=== PATIENT | female | born 1930 | race Caucasian/White ===

== ENCOUNTER 2017-03-09 15:34 | Emergency (ER) | payer MEDICARE, OTHER ==
--- NOTE | 2017-03-09 16:26 | ERPHSYRPT ---
- History of Present Illness Time Seen by Provider: 03/09/17 16:18 Source: patient Exam Limitations: no limitations Patient Subjective Stated Complaint: PT REPORTS WAKING UP THIS AM WITH SWELLING TO BILATERAL FOOT ET ANKLES-DENIES PAIN DENIES SOB Triage Nursing Assessment: PT PINK WARM ET [id number] CLEAR ET EQUAL BILATERALLY-BILATERAL EDEMA NOTED-PULSES PRESENT Physician History: The patient is an 86-year-old female who complains of noticing extra swelling in her lower legs and feet today. She normally takes 40 mg of Lasix a day in the morning but today because of the swelling took 2. She has a history of congestive heart failure and was hospitalized a year ago for CHF. Her doctor told her if this happened again, to be seen by . She denies shortness of breath. She denies chest pain. Her past medical history is significant for CHF , hypertension, and high cholesterol. Timing/Duration: today Severity: moderate Modifying Factors: Improves With: medication Associated Symptoms: denies symptoms Allergies/Adverse Reactions: No Known Allergies Allergy (Verified 03/09/17 15:47) Home Medications: Carvedilol 3.125 mg [Coreg 3.125 MG] 3.125 mg PO BID 10/04/15 [History] Gabapentin 100 mg PO TIDPRN 10/04/15 [History] Hydrocodone Bit/Acetaminophen [[place] 7.5-325 Tablet] 1 each PO Q6HPRN PRN [History] Simvastatin [Zocor] 20 mg PO HS 10/04/15 [History] Aspirin 81 gm Chew [Baby Aspirin 81 mg Chew] 81 mg PO DAILY 03/09/17 [ History] Hx Tetanus, Diphtheria Vaccination/Date Given: No Hx Influenza Vaccination/Date Given: Yes Hx Pneumococcal Vaccination/Date Given: Yes Immunizations Up to Date: Yes - Review of Systems Constitutional: No Fever, No Chills Eyes: No Symptoms Ears, Nose, & Throat: No Symptoms Respiratory: No Cough, No Dyspnea Cardiac: Edema, No Chest Pain, No Syncope Abdominal/Gastrointestinal: No Abdominal Pain, No Nausea, No Vomiting, No Diarrhea Genitourinary Symptoms: No Dysuria Musculoskeletal: No Back Pain, No Neck Pain Skin: No Rash Neurological: No Dizziness, No Focal Weakness, No Sensory Changes Psychological: No Symptoms Endocrine: No Symptoms Hematologic/Lymphatic: No Symptoms Immunological/Allergic: No Symptoms All Other Systems: Reviewed and Negative - Past Medical History Pertinent Past Medical History: Yes Neurological History: Stroke ENT History: Cataracts Cardiac History: Congestive Heart Failure, High Cholesterol, Hypertension Respiratory History: Sleep Apnea Endocrine Medical History: No Pertinent History Musculoskeletal History: Osteoarthritis GI Medical History: No Pertinent History History: No Pertinent History Psycho-Social History: No Pertinent History Female Reproductive Disorders: No Pertinent History Other Medical History: LEFT TKR 2003. RIGHT TKR FEBRUARY 2015 - Past Surgical History Past Surgical History: Yes Neuro Surgical History: No Pertinent History Cardiac: No Pertinent History Respiratory: No Pertinent History Gastrointestinal: Cholecystectomy Genitourinary: No Pertinent History Musculoskeletal: Joint Replacement Female Surgical History: Tubal Ligation Other Surgical History: filter placed - Social History Smoking Status: Never smoker Exposure to second hand smoke: No Drug Use: none Patient Lives Alone: No - Nursing Vital Signs Nursing Vital Signs: Initial Vital Signs Temperature 97.2 F Temperature Source Oral Pulse Rate 80 Respiratory Rate 18 Blood Pressure [] 156/85 Pain Intensity 0 - Physical Exam General Appearance: no apparent distress, alert Eye Exam: PERRL/EOMI, eyes nml inspection Ears, Nose, Throat Exam: normal ENT inspection, TMs normal, pharynx normal, moist mucous membranes Neck Exam: normal inspection, non-tender, supple, full range of motion Respiratory Exam: normal breath sounds, lungs clear, No respiratory distress Cardiovascular Exam: regular rate/rhythm, normal heart sounds, normal peripheral pulses Gastrointestinal/Abdomen Exam: soft, normal bowel sounds, No tenderness, No mass Pelvic Exam: not done Rectal Exam: not done Back Exam: normal inspection, normal range of motion, No CVA tenderness, No vertebral tenderness Extremity Exam: pedal edema (2+) Neurologic Exam: alert, oriented x 3, cooperative, normal mood/affect, nml cerebellar function, nml station & gait, sensation nml, No motor deficits Skin Exam: normal color, warm, dry, No rash Lymphatic Exam: No adenopathy SpO2 Interpretation: normal SpO2: 97 Oxygen Delivery: Room Air - Radiology Exams Chest X-ray Interpretation: Interpreted by me, Negative Ordered Tests: Active Orders 24 hr Category Date Time Status CHEST 2 VIEWS (PA AND LAT) Stat Exams 03/09/17 16:30 Taken CBC W DIFF Stat Lab 03/09/17 17:00 Completed CMP Stat Lab 03/09/17 17:00 Completed NT PRO BNP Stat Lab 03/09/17 17:00 Completed Lab/Rad Data: Laboratory Result Diagrams 03/09/17 17:00 03/09/17 17:00 Laboratory Results 03/09/17 03/09/17 Range/Units 17:00 17:00 WBC 5.8 (4.0-10.5) K/mm3 RBC 4.31 (4.1-5.4) M/mm3 Hgb 13.5 (12.0-16.0) gm/dl Hct 42.6 (35-47) % MCV 98.8 (78-100) fl MCH 31.3 (26-32) pg MCHC 31.7 L (32-36) g/dl RDW 12.1 (11.5-14.0) % Plt Count 195 (150-450) K/mm3 MPV 9.0 (6-9.5) fl Gran % 48.3 (36.0-66.0) % Lymphocytes % 34.0 (24.0-44.0) % Monocytes % 11.9 (0.0-12.0) % Eosinophils % 5.5 H (0.00-5.0) % Basophils % 0.3 (0.0-0.4) % Basophils # 0.02 (0-0.4) Sodium 143 (136-145) mEq/L Potassium 3.7 (3.5-5.1) mEq/L Chloride 101 (98-107) mEq/L Carbon Dioxide 34.2 H (21-32) mEq/L Anion Gap 11.0 (5-15) MEQ/L BUN 18 (9-20) mg/dL Creatinine 0.84 (0.55-1.30) mg/dl Estimated GFR > 60 ML/MIN Glucose 107 (70-110) MG/DL Calcium 10.1 (8.5-10.1) mg/dL Total Bilirubin 0.60 (0.2-1.0) mg/dL AST 26 (15-37) U/L ALT 26 (12-78) U/L Alkaline Phosphatase 69 (46-116) U/L NT-Pro-B Natriuret Pep 1916 H (0-450) pg/ml Serum Total Protein 7.5 (6.4-8.2) gm/dL Albumin 3.9 (3.4-5.0) g/dL - Departure Time of Disposition: 17:43 Departure Disposition: Home Clinical Impression: Lower leg edema Condition: Stable Critical Care Time: No Additional Instructions: This swelling of your lower legs and feet is caused by your congestive heart failure. Increase your Lasix from 40 mg daily to 40 mg twice a day for 3 days. Follow-up next week.
[2017-03-09 16:58] VITALS: O2SAT 97
[2017-03-09 17:08] LABS: BASOPHIL % 0.3 % (0.0-0.4); Eosinophil % 5.5 % (0.00-5.0); Granulocytes % 48.3 % (36.0-66.0); Mean Cell Volume 98.8 fl (78-100); Mean Corpuscular Hemoglobin 31.3 pg (26-32); Monocytes % 11.9 % (0.0-12.0); Platelet Count 195 K/mm3 (150-450); Red Blood Count 4.31 M/mm3 (4.1-5.4); Red Cell Distribution Width 12.1 % (11.5-14.0); White Blood Count 5.8 K/mm3 (4.0-10.5)
[2017-03-09 17:37] LABS: ALBUMIN 3.9 g/dL (3.4-5.0); ALKALINE PHOSPHATASE 69 U/L (46-116); BLOOD UREA NITROGEN 18 mg/dL (9-20); CHLORIDE 101 mEq/L (98-107); Carbon Dioxide 34.2 mEq/L (21-32); Glucose 107 MG/DL (70-110); Potassium 3.7 mEq/L (3.5-5.1); SGOT/AST 26 U/L (15-37); SGPT/ALT 26 U/L (12-78); SODIUM 143 mEq/L (136-145); Total Protein 7.5 gm/dL (6.4-8.2)
[2017-03-09 17:57] VITALS: BP 139/67; PULSE 75
--- NOTE | 2017-03-09 21:30 | XRAY ---
Indication: Lower leg edema. History of CHF. Comparison: October 06, 2015. PA/lateral chest is clear. Heart is not enlarged. Vascularity normal. Descending aorta remains tortuous. Bony thorax intact again with mild osteopenia and degenerative changes. Impression: Nonacute chest with chronic features.
== END 2017-03-09 17:56 | disposition home or self-care (01) ==
LOC: ED 15:34
DX: R60.0 Localized edema (principal); I50.9 Heart failure, unspecified; Z79.899 Other long term (current) drug therapy; M79.89 Other specified soft tissue disorders; I10 Essential (primary) hypertension; E78.00 Pure hypercholesterolemia, unspecified
CPT/HCPCS: 36415; 71020; 80053; 83880; 85025; 99284

== ENCOUNTER 2019-02-23 10:18 | Emergency (ER) | payer MEDICARE, OTHER ==
[2019-02-23 10:57] LABS: BASOPHIL % 0.2 % (0.0-0.4); Basophil (Absolute #) 0.01 (0-0.4); Eosinophil % 1.8 % (0.00-5.0); Granulocyte Absolute (ANC) 3.35 (1.4-6.9); Granulocytes % 60.6 % (36.0-66.0); Hematocrit 42.4 % (35-47); Hemoglobin 14.1 gm/dl (12.0-16.0); Lymphocyte (Absolute #) 1.24 (1.0-4.6); Lymphocytes % 22.5 % (24.0-44.0); Mean Cell Volume 95.3 fl (78-100); Mean Corpuscular Hemoglobin 31.7 pg (26-32); Mean Corpuscular Hgb Concent. 33.3 g/dl (32-36); Monocyte (Absolute #) 0.82 (0.0-1.3); Monocytes % 14.9 % (0.0-12.0); Platelet Count 189 K/mm3 (150-450); Red Blood Count 4.45 M/mm3 (4.1-5.4); Red Cell Distribution Width 12.1 % (11.5-14.0); White Blood Count 5.5 K/mm3 (4.0-10.5)
[2019-02-23 11:09] LABS: ALBUMIN 4.3 g/dL (3.5-5.0); ALKALINE PHOSPHATASE 60 U/L (38-126); ANION GAP 16.9 MEQ/L (5-15); BLOOD UREA NITROGEN 20 mg/dL (7-17); CHLORIDE 90 mmol/L (98-107); Calcium 10.3 mg/dL (8.4-10.2); Carbon Dioxide 30 mmol/L (22-30); Creatinine 1 0.92 mg/dL (0.52-1.04); Glucose 110 mg/dL (74-106); MAGNESIUM 1.8 mg/dL (1.6-2.3); Potassium 4.6 mmol/L (3.5-5.1); SGOT/AST 28 U/L (14-36); SGPT/ALT 19 U/L (0-35); SODIUM 132 mmol/L (137-145); Total Protein 7.9 g/dL (6.3-8.2)
[2019-02-23 11:27] LABS: Appearance SLIGHTLY CLOUDY (CLEAR); Bacteria FEW /HPF (NEGATIVE); Bilirubin NEGATIVE (NEGATIVE); Blood LARGE Ery/ul (0-5); Epithelial Cells RARE /HPF (FEW); Glucose NEGATIVE (NEGATIVE); Ketones SMALL (NEGATIVE); Leukocyte Esterase NEGATIVE (NEGATIVE); Mucus SLIGHT /HPF (NEGATIVE); Nitrite NEGATIVE (NEGATIVE); Protein,Urine Dip NEGATIVE (Negative); Specific Gravity 1.019 (1.005-1.025); Urobilinogen NEGATIVE mg/dL (0-1)
[2019-02-23 12:57] VITALS: O2SAT 98
--- NOTE | 2019-02-23 13:12 | ERPHSYRPT ---
- History of Present Illness Historian: patient Exam Limitations: no limitations Patient Subjective Stated Complaint: STATES HAS BEEN FEELING BAD SINCE LAST WEEK. HAD SWELLING TO LEGS AND TOOK EXTRA LASIX. YESTERDAY AND TODAY HAS HAD TWO DIARRHEA STOOLS AND FEELS VERY WEAK TODAY. Triage Nursing Assessment: TO ROOM PER W/C. SKIN W/D, COLOR NORMAL, RESP EASY. NO SWELLING NOTED TO LEGS TODAY. ASSISTED TO COT. SOME WEAKNESS NOTED. Physician History: Pt is a n 88 y/o female that has some complains of diarrhea, nausea and h/o vomiting. She did go to acute care, but as pt has a h/o CHF, she was refereed to the ER. Pt has no F/C/S. No chest pain or palpitations. She is using Lasix on a PRN basis, for her edema in LEs. Timing/Duration: day(s) Activities at Onset: none Quality: cramping Abdominal Pain Onset Location: other (mild periumbilical) Pain Radiation: no radiation Severity of Pain-Max: mild Severity of Pain-Current: mild Modifying Factors: Improves With: nothing Associated Symptoms: diarrhea Allergies/Adverse Reactions: No Known Allergies Allergy (Verified 02/23/19 10:32) Home Medications: Carvedilol 3.125 mg [Coreg 3.125 MG] 3.125 mg PO BID 10/04/15 [History] Gabapentin 100 mg PO TIDPRN 10/04/15 [History] Hydrocodone Bit/Acetaminophen [[place] 7.5-325 Tablet] 1 each PO Q6HPRN PRN [History] Simvastatin [Zocor] 20 mg PO HS 10/04/15 [History] Aspirin 81 gm Chew [Baby Aspirin 81 mg Chew] 81 mg PO DAILY 03/09/17 [ History] Losartan/Hydrochlorothiazide [Losartan-Hctz 50-12.5 mg Tab] 50 mg PO DAILY 02/23 [History] Hx Tetanus, Diphtheria Vaccination/Date Given: No Hx Influenza Vaccination/Date Given: Yes Hx Pneumococcal Vaccination/Date Given: Yes - Review of Systems Constitutional: Fatigue Eyes: No Symptoms Ears, Nose, & Throat: No Symptoms Respiratory: No Cough, No Dyspnea Cardiac: No Chest Pain, No Edema, No Syncope Abdominal/Gastrointestinal: Abdominal Pain, Nausea, Diarrhea, No Vomiting Genitourinary Symptoms: No Dysuria Musculoskeletal: No Back Pain, No Neck Pain Neurological: No Dizziness, No Focal Weakness, No Sensory Changes - Past Medical History Pertinent Past Medical History: Yes Neurological History: No Pertinent History ENT History: Cataracts Cardiac History: High Cholesterol, Hypertension Respiratory History: No Pertinent History Endocrine Medical History: No Pertinent History Musculoskeletal History: Arthritis, Osteoarthritis, Osteoporosis GI Medical History: No Pertinent History History: No Pertinent History Psycho-Social History: No Pertinent History Female Reproductive Disorders: No Pertinent History Other Medical History: LEFT TKR 2003. RIGHT TKR FEBRUARY 2015 - Past Surgical History Past Surgical History: Yes Neuro Surgical History: No Pertinent History Cardiac: No Pertinent History Respiratory: No Pertinent History Gastrointestinal: Cholecystectomy Genitourinary: No Pertinent History Musculoskeletal: Joint Replacement Female Surgical History: Tubal Ligation Other Surgical History: filter placed - Social History Smoking Status: Never smoker Exposure to second hand smoke: Yes Drug Use: none Patient Lives Alone: Yes - Female History Hx Now: No - Nursing Vital Signs Nursing Vital Signs: Initial Vital Signs Temperature 97.7 F 02/23/19 10:28 Pulse Rate 66 02/23/19 10:28 Respiratory Rate 16 02/23/19 10:28 Blood Pressure 147/84 02/23/19 10:28 O2 Sat by Pulse Oximetry 94 L 02/23/19 10:28 Pain Scale Pain Intensity 2 - Physical Exam General Appearance: no apparent distress, alert Eye Exam: PERRL/EOMI, eyes nml inspection Ears, Nose, Throat Exam: normal ENT inspection, pharynx normal, moist mucous membranes Neck Exam: normal inspection, non-tender, supple, full range of motion Respiratory Exam: normal breath sounds, lungs clear, No respiratory distress Cardiovascular Exam: regular rate/rhythm, normal heart sounds Gastrointestinal/Abdomen Exam: soft, No tenderness, No mass Back Exam: normal inspection, normal range of motion, No CVA tenderness, No vertebral tenderness Extremity Exam: normal inspection, normal range of motion, pelvis stable Neurologic Exam: alert, oriented x 3, cooperative, normal mood/affect, nml cerebellar function, sensation nml, No motor deficits SpO2: 98 - Course Nursing assessment & vital signs reviewed: Yes Ordered Tests: Active Orders 24 hr Category Date Time Status BNP [NT PRO BNP] Stat Lab 02/23/19 10:54 Completed CBC W DIFF Stat Lab 02/23/19 10:54 Completed CMP Stat Lab 02/23/19 10:54 Completed CULTURE,URINE Stat Lab 02/23/19 10:39 Received Lactic Acid Stat Lab 02/23/19 10:51 Completed MAGNESIUM Stat Lab 02/23/19 10:54 Completed TROPONIN Q3H Lab 02/23/19 10:54 Completed TROPONIN Q3H Lab 02/23/19 13:45 Ordered TROPONIN Q3H Lab 02/23/19 16:45 Ordered TROPONIN Q3H Lab 02/23/19 19:45 Ordered TROPONIN Q3H Lab 02/23/19 22:45 Ordered UA W/RFX UR CULTURE Stat Lab 02/23/19 10:39 Completed Lab/Rad Data: Laboratory Result Diagrams 02/23/19 10:54 02/23/19 10:54 Laboratory Results 02/23/19 02/23/19 02/23/19 Range/Units 10:54 10:54 10:54 WBC (4.0-10.5) K/mm3 RBC (4.1-5.4) M/mm3 Hgb (12.0-16.0) gm/dl Hct (35-47) % MCV (78-100) fl MCH (26-32) pg MCHC (32-36) g/dl RDW (11.5-14.0) % Plt Count (150-450) K/mm3 MPV (6-9.5) fl Gran % (36.0-66.0) % Eos # (Auto) (0-0.5) Absolute Lymphs (auto) (1.0-4.6) Absolute Monos (auto) (0.0-1.3) Lymphocytes % (24.0-44.0) % Monocytes % (0.0-12.0) % Eosinophils % (0.00-5.0) % Basophils % (0.0-0.4) % Absolute Granulocytes (1.4-6.9) Basophils # (0-0.4) Sodium 132 L (137-145) mmol/L Potassium 4.6 (3.5-5.1) mmol/L Chloride 90 L (98-107) mmol/L Carbon Dioxide 30 (22-30) mmol/L Anion Gap 16.9 H (5-15) MEQ/L BUN 20 H (7-17) mg/dL Creatinine 0.92 (0.52-1.04) mg/dL Estimated GFR > 60.0 ML/MIN Glucose 110 H (74-106) mg/dL Lactic Acid (0.4-2.0) Calcium 10.3 H (8.4-10.2) mg/dL Magnesium 1.8 (1.6-2.3) mg/dL Total Bilirubin 1.00 (0.2-1.3) mg/dL AST 28 (14-36) U/L ALT 19 (0-35) U/L Alkaline Phosphatase 60 (38-126) U/L Troponin I < 0.012 (0.000-0.034) ng/mL NT-Pro-B Natriuret Pep 493 (0-1800) pg/mL Serum Total Protein 7.9 (6.3-8.2) g/dL Albumin 4.3 (3.5-5.0) g/dL Urine Color (YELLOW) Urine Appearance (CLEAR) Urine pH (5-6) Ur Specific [place] (1.005-1.025) Urine Protein (Negative) Urine Ketones (NEGATIVE) Urine Blood (0-5) Roman/ul Urine Nitrite (NEGATIVE) Urine Bilirubin (NEGATIVE) Urine Urobilinogen (0-1) mg/dL Ur Leukocyte Esterase (NEGATIVE) Urine WBC (Auto) (0-5) /HPF Urine RBC (Auto) (0-2) /HPF U Hyaline Cast (Auto) (0-2) /LPF U Epithel Cells (Auto) (FEW) /HPF Urine Bacteria (Auto) (NEGATIVE) /HPF Urine Mucus (Auto) (NEGATIVE) /HPF Urine Culture Reflexed (NO) Urine Glucose (NEGATIVE) mg/dL 02/23/19 02/23/19 02/23/19 Range/Units 10:54 10:51 10:39 WBC 5.5 (4.0-10.5) K/mm3 RBC 4.45 (4.1-5.4) M/mm3 Hgb 14.1 (12.0-16.0) gm/dl Hct 42.4 (35-47) % MCV 95.3 (78-100) fl MCH 31.7 (26-32) pg MCHC 33.3 (32-36) g/dl RDW 12.1 (11.5-14.0) % Plt Count 189 (150-450) K/mm3 MPV 9.0 (6-9.5) fl Gran % 60.6 (36.0-66.0) % Eos # (Auto) 0.10 (0-0.5) Absolute Lymphs (auto) 1.24 (1.0-4.6) Absolute Monos (auto) 0.82 (0.0-1.3) Lymphocytes % 22.5 L (24.0-44.0) % Monocytes % 14.9 H (0.0-12.0) % Eosinophils % 1.8 (0.00-5.0) % Basophils % 0.2 (0.0-0.4) % Absolute Granulocytes 3.35 (1.4-6.9) Basophils # 0.01 (0-0.4) Sodium (137-145) mmol/L Potassium (3.5-5.1) mmol/L Chloride (98-107) mmol/L Carbon Dioxide (22-30) mmol/L Anion Gap (5-15) MEQ/L BUN (7-17) mg/dL Creatinine (0.52-1.04) mg/dL Estimated GFR ML/MIN Glucose (74-106) mg/dL Lactic Acid 1.2 (0.4-2.0) Calcium (8.4-10.2) mg/dL Magnesium (1.6-2.3) mg/dL Total Bilirubin (0.2-1.3) mg/dL AST (14-36) U/L ALT (0-35) U/L Alkaline Phosphatase (38-126) U/L Troponin I (0.000-0.034) ng/mL NT-Pro-B Natriuret Pep (0-1800) pg/mL Serum Total Protein (6.3-8.2) g/dL Albumin (3.5-5.0) g/dL Urine Color YELLOW (YELLOW) Urine Appearance SLIGHTLY CLOUDY (CLEAR) Urine pH 5.0 (5-6) Ur Specific [place] 1.019 (1.005-1.025) Urine Protein NEGATIVE (Negative) Urine Ketones SMALL (NEGATIVE) Urine Blood LARGE (0-5) Roman/ul Urine Nitrite NEGATIVE (NEGATIVE) Urine Bilirubin NEGATIVE (NEGATIVE) Urine Urobilinogen NEGATIVE (0-1) mg/dL Ur Leukocyte Esterase NEGATIVE (NEGATIVE) Urine WBC (Auto) 3-5 (0-5) /HPF Urine RBC (Auto) 6-10 (0-2) /HPF U Hyaline Cast (Auto) 6-10 (0-2) /LPF U Epithel Cells (Auto) RARE (FEW) /HPF Urine Bacteria (Auto) FEW (NEGATIVE) /HPF Urine Mucus (Auto) SLIGHT (NEGATIVE) /HPF Urine Culture Reflexed YES (NO) Urine Glucose NEGATIVE (NEGATIVE) mg/dL - Progress Progress: unchanged Progress Note: 02/23/19 13:07 Pt had lab work ordered that did not show any pathology. Urine was clean, pro BNP was mildly elevated at 493, no leujocytosis with WBCs of 5.5, and normal Hgb of 14.1. LFTs were normal, electrolytes, and sCr were normal as well. Pt did have one episode of diarrhea in the ER, but GI profile was not collected, as pt had tissue in the bowel. Pt did not think, she can go again, and wanted to be d/c to home. Pt should f/u with her PCP as out pt. Will see patient in: office Counseled pt/family regarding: need for follow-up - Departure Departure Disposition: Home Clinical Impression: Weakness Condition: Stable Critical Care Time: No Referrals: DARRYL FLORES, GHAZAL [Primary Care Provider] - Additional Instructions: Pt should f/u with her PCP this week.
[2019-02-23 13:55] VITALS: BP 158/100; PULSE 64
== END 2019-02-23 13:40 | disposition home or self-care (01) ==
LOC: ED 10:18
DX: R53.1 Weakness (principal)
CPT/HCPCS: 36415; 80053; 81001; 83605; 83735; 83880; 84484; 85025; 87086; 99283

== ENCOUNTER 2020-04-10 20:00 | Emergency (ER) | payer MEDICARE, OTHER ==
--- NOTE | 2020-04-10 20:04 | ERPHSYRPT ---
- History of Present Illness Time Seen by Provider: 04/10/20 20:04 Historian: patient, family Exam Limitations: no limitations Physician History: Is an 89-year-old white female who sees Dr. Mccallum for blood pressure issues. In the last couple days the patient has been feeling ill. She has been having some nausea and intermittent shortness of air. Today, patient began having some pain that is an ache and also intermittently sharp in the left chest underneath her breast. This pain radiates laterally and sometimes into her back on the left side. She is mildly short of breath as well. She is in no abdominal pain, no vomiting no diarrhea. She is never had this kind of pain before. She has no known myocardial infarction or coronary artery disease. Patient has a history of congestive heart failure and high blood pressure. Timing/Duration: today Quality: aching, sharpness Location: other (Left chest underneath her breast) Chest Pain Radiation: no radiation Severity of Pain-Max: mild Severity of Pain-Current: mild Modifying Factors: Improves With: nitroglycerin (Improved), aspirin Prior Chest Pain/Cardiac Workup: no prior chest pain Nitro Today/Relief: 0.4 mg x 2, provided by ED Aspirin Treatment Today: 81 mg x 1, provided by ED (381 mg baby aspirin's were provided.) Allergies/Adverse Reactions: No Known Allergies Allergy (Verified 04/10/20 20:07) Home Medications: Carvedilol 3.125 mg [Coreg 3.125 MG] 3.125 mg PO BID 10/04/15 [History] Hydrocodone Bit/Acetaminophen [[place] 7.5-325 Tablet] 1 each PO Q6HPRN PRN 10/04/15 [History] Simvastatin [Zocor] 20 mg PO HS 10/04/15 [History] Aspirin 81 gm Chew [Baby Aspirin 81 mg Chew] 81 mg PO DAILY 03/09/17 [History] Losartan/Hydrochlorothiazide [Losartan-Hctz 50-12.5 mg Tab] 50 mg PO DAILY 02/23/19 [History] Hx Tetanus, Diphtheria Vaccination/Date Given: No Hx Influenza Vaccination/Date Given: Yes Hx Pneumococcal Vaccination/Date Given: Yes Travel Risk - International Travel Have you traveled outside of the country in past 3 weeks: No - Coronavirus Screening Are you exhibiting any of the following symptoms?: No Close contact with a COVID-19 positive Pt in past 14-21 Days: No - Review of Systems Constitutional: No Symptoms Eyes: No Symptoms Ears, Nose, & Throat: No Symptoms Respiratory: No Symptoms Cardiac: Chest Pain Abdominal/Gastrointestinal: No Symptoms Genitourinary Symptoms: No Symptoms Musculoskeletal: No Symptoms Skin: No Symptoms Neurological: No Symptoms Psychological: No Symptoms Endocrine: No Symptoms Hematologic/Lymphatic: No Symptoms Immunological/Allergic: No Symptoms All Other Systems: Reviewed and Negative - Past Medical History Pertinent Past Medical History: Yes Neurological History: No Pertinent History ENT History: Cataracts Cardiac History: High Cholesterol, Hypertension Respiratory History: No Pertinent History Endocrine Medical History: No Pertinent History Musculoskeletal History: Arthritis, Osteoarthritis, Osteoporosis GI Medical History: No Pertinent History History: No Pertinent History Psycho-Social History: No Pertinent History Female Reproductive Disorders: No Pertinent History Other Medical History: LEFT TKR 2003. RIGHT TKR FEBRUARY 2015 - Past Surgical History Past Surgical History: Yes Neuro Surgical History: No Pertinent History Cardiac: No Pertinent History Respiratory: No Pertinent History Gastrointestinal: Cholecystectomy Genitourinary: No Pertinent History Musculoskeletal: Joint Replacement Female Surgical History: Tubal Ligation Other Surgical History: filter placed - Social History Smoking Status: Never smoker Exposure to second hand smoke: Yes Drug Use: none Patient Lives Alone: Yes - Nursing Vital Signs Nursing Vital Signs: Initial Vital Signs Temperature 99.8 F 04/10/20 20:00 Pulse Rate 100 H 04/10/20 20:00 Respiratory Rate 16 04/10/20 20:00 Blood Pressure 168/83 04/10/20 20:00 O2 Sat by Pulse Oximetry 96 04/10/20 20:00 Pain Scale Pain Intensity 7 - Physical Exam General Appearance: mild distress, alert, anxiety Eye Exam: PERRL/EOMI, eyes nml inspection Ears, Nose, Throat Exam: normal ENT inspection, moist mucous membranes Neck Exam: normal inspection, non-tender, supple, full range of motion Respiratory Exam: normal breath sounds, chest tenderness, lungs clear, airway intact, No respiratory distress Cardiovascular Exam: regular rate/rhythm, normal heart sounds, normal peripheral pulses Gastrointestinal/Abdomen Exam: soft, normal bowel sounds, No tenderness Pelvic Exam: not done Rectal Exam: not done Back Exam: normal inspection, normal range of motion, No CVA tenderness, No vertebral tenderness Extremity Exam: normal inspection, normal range of motion, pelvis stable Neurologic Exam: alert, oriented x 3, cooperative, ux engineer II-XII nml as tested, normal mood/affect, nml cerebellar function, nml station & gait, sensation nml Skin Exam: normal color, warm, dry Lymphatic Exam: No adenopathy SpO2 Interpretation: normal O2 Delivery: Room Air - Course Nursing assessment & vital signs reviewed: Yes EKG Interpreted by Me: RATE (81), Sinus Rhythm, NORMAL AXIS, NORMAL INTERVALS, NORMAL QRS, Left Bundle Branch Block, Other (Clear atrial premature complexes present. No acute ischemic changes are present. Comparison EKG is 2016. The current EKG is much improved with resolution of nonspecific ST segment changes as well as resolution of first-degree AV block) Ordered Tests: Medication Summary Discontinued Medications Generic Name Dose Route Start Last Admin Trade Name Andreq PRN Reason Stop Dose Admin Aspirin 243 mg 04/10/20 21:05 04/10/20 20:15 Baby Aspirin 81 Mg Chew PO 04/10/20 21:06 243 mg STAT ONE Administration Furosemide 20 mg 04/11/20 23:31 Lasix 20 Mg/2 Ml IV 04/11/20 23:32 STAT ONE Sodium Chloride 1,000 mls @ 100 mls/hr 04/10/20 20:30 04/10/20 21:09 Sodium Chloride 0.9% 1000 Ml IV 05/10/20 20:29 100 mls/hr .Q10H BEBE Administration Morphine Sulfate 2 mg 04/10/20 22:21 04/10/20 22:30 Morphine Sulfate 2 Mg Inj IV 04/10/20 22:22 2 mg STAT ONE Administration Morphine Sulfate Confirm 04/10/20 22:25 Morphine Sulfate 2 Mg Inj Administered 04/10/20 22:26 Dose 2 mg .ROUTE .STK-MED ONE Nitroglycerin 0.4 mg 04/10/20 21:02 04/10/20 20:11 Nitrostat 0.4 Mg (Ed) SL 04/10/20 21:03 0.4 mg STAT ONE Administration Nitroglycerin 0.4 mg 04/10/20 21:07 04/10/20 20:16 Nitrostat 0.4 Mg (Ed) SL 04/10/20 21:08 0.4 mg STAT ONE Administration Ondansetron HCl 4 mg 04/10/20 22:21 04/10/20 22:30 Zofran 4 Mg/2 Ml Vial IV 04/10/20 22:22 4 mg STAT ONE Administration Ondansetron HCl Confirm 04/10/20 22:24 Zofran 4 Mg/2 Ml Vial Administered 04/10/20 22:25 Dose 4 mg .ROUTE .STK-MED ONE Lab/Rad Data: Laboratory Result Diagrams 04/10/20 20:49 04/10/20 20:49 Laboratory Results 04/10/20 04/10/20 04/10/20 Range/Units 20:49 20:49 20:49 WBC (4.0-10.5) K/mm3 RBC (4.1-5.4) M/mm3 Hgb (12.0-16.0) gm/dl Hct (35-47) % MCV (78-100) fl MCH (26-32) pg MCHC (32-36) g/dl RDW (11.5-14.0) % Plt Count (150-450) K/mm3 MPV (7.5-11.0) fl Gran % (36.0-66.0) % Eos # (Auto) (0-0.5) Absolute Lymphs (auto) (1.0-4.6) Absolute Monos (auto) (0.0-1.3) Lymphocytes % (24.0-44.0) % Monocytes % (0.0-12.0) % Eosinophils % (0.00-5.0) % Basophils % (0.0-0.4) % Absolute Granulocytes (1.4-6.9) Basophils # (0-0.4) PT 11.6 (9.95-12.35) SECONDS INR 1.03 (0.8-3.0) Sodium 130 L (137-145) mmol/L Potassium 3.7 (3.5-5.1) mmol/L Chloride 94 L (98-107) mmol/L Carbon Dioxide 27 (22-30) mmol/L Anion Gap 12.9 (5-15) MEQ/L BUN 21 H (7-17) mg/dL Creatinine 0.81 (0.52-1.04) mg/dL Estimated GFR > 60.0 ML/MIN Glucose 145 H (74-106) mg/dL Calcium 9.4 (8.4-10.2) mg/dL Total Bilirubin 4.80 H (0.2-1.3) mg/dL AST 231 H (14-36) U/L ALT 256 H (0-35) U/L Alkaline Phosphatase 170 H (38-126) U/L Troponin I 0.012 (0.000-0.034) ng/mL NT-Pro-B Natriuret Pep 1870 H (0-1800) pg/mL Serum Total Protein 7.2 (6.3-8.2) g/dL Albumin 3.9 (3.5-5.0) g/dL Hepatitis A IgM Ab (Non Reactive) Hep Bs Antigen (Non Reactive) Hep Bs Antibody, Quant (0.00-8.49) mIU/mL Hep B Core Total Ab (Non Reactive) Hepatitis C Antibody (Non Reactive) 04/10/20 04/10/20 04/10/20 Range/Units 20:49 20:30 00:25 WBC 6.3 (4.0-10.5) K/mm3 RBC 3.48 L (4.1-5.4) M/mm3 Hgb 11.1 L (12.0-16.0) gm/dl Hct 34.1 L (35-47) % MCV 98.0 (78-100) fl MCH 31.9 (26-32) pg MCHC 32.6 (32-36) g/dl RDW 12.3 (11.5-14.0) % Plt Count 147 L (150-450) K/mm3 MPV 9.6 (7.5-11.0) fl Gran % 93.6 H (36.0-66.0) % Eos # (Auto) 0.01 (0-0.5) Absolute Lymphs (auto) 0.25 L (1.0-4.6) Absolute Monos (auto) 0.14 (0.0-1.3) Lymphocytes % 4.0 L (24.0-44.0) % Monocytes % 2.2 (0.0-12.0) % Eosinophils % 0.2 (0.00-5.0) % Basophils % 0.0 (0.0-0.4) % Absolute Granulocytes 5.86 (1.4-6.9) Basophils # 0 (0-0.4) PT (9.95-12.35) SECONDS INR (0.8-3.0) Sodium (137-145) mmol/L Potassium (3.5-5.1) mmol/L Chloride (98-107) mmol/L Carbon Dioxide (22-30) mmol/L Anion Gap (5-15) MEQ/L BUN (7-17) mg/dL Creatinine (0.52-1.04) mg/dL Estimated GFR ML/MIN Glucose (74-106) mg/dL Calcium (8.4-10.2) mg/dL Total Bilirubin (0.2-1.3) mg/dL AST (14-36) U/L ALT (0-35) U/L Alkaline Phosphatase (38-126) U/L Troponin I 0.042 H* (0.000-0.034) ng/mL NT-Pro-B Natriuret Pep (0-1800) pg/mL Serum Total Protein (6.3-8.2) g/dL Albumin (3.5-5.0) g/dL Hepatitis A IgM Ab Non Reactive (Non Reactive) Hep Bs Antigen Non Reactive (Non Reactive) Hep Bs Antibody, Quant <3.50 (0.00-8.49) mIU/mL Hep B Core Total Ab Non Reactive (Non Reactive) Hepatitis C Antibody Non Reactive (Non Reactive) - Progress Progress: improved, re-examined Air Movement: good Progress Note: 04/10/20 23:41 Medical decision making: This patient states that she is feeling much better. She does not have the left-sided chest pain that she was complaining about. My plan is to obtain the 3-hour troponin. The patient does not want to be admitted or transferred into the hospital. I offered her admission. She declines. I offered her transferring to another hospital and she declines. The patient did state that she did fall 3 days ago and has some right buttock and hip pain. We will obtain an x-ray of this area. I also had ordered Lasix for her intravenously because of an elevated BNP. Patient declines the Lasix. She states that her slunk skin curer told her not to take Lasix because it is hard on her heart. I do not have an explanation for the patient's elevated liver function test. Patient has had a series of injections to help prevent hepatitis. However, I did order a hepatitis panel. This is a send out and we will not have the results back for a few days. I told the patient that she needs to follow-up with her primary care physician for the results of her hepatitis panel and also for further work-up of her elevated liver function test. She states that she has not had any known exposure to anyone with viral illness or hepatitis. 04/11/20 00:19 Right hip x-ray reveals no evidence of any acute fracture or dislocation. Blood Culture(s) Obtained: No Antibiotics given: No Counseled pt/family regarding: lab results, diagnosis, need for follow-up, rad results - Departure Departure Disposition: Home Clinical Impression: Chest pain, CHF (congestive heart failure), HTN (hypertension), Elevated liver enzymes Condition: Fair Critical Care Time: Yes Referrals: DARRYL FLORES NP [Primary Care Provider] - Instructions: Heart Failure
[2020-04-10] MEDS ORDERED: Sodium Chloride 0.9% 1000 ML 1,000 ML IV SCH (20:30)
[2020-04-10 20:53] LABS: Absolute Neutrophil Ct (ANC) 5.86 (1.4-6.9); Basophil (Absolute #) 0 (0-0.4); Eosinophil % 0.2 % (0.00-5.0); Eosinophil (Absolute #) 0.01 (0-0.5); Hematocrit 34.1 % (35-47); Hemoglobin 11.1 gm/dl (12.0-16.0); Lymphocyte (Absolute #) 0.25 (1.0-4.6); Mean Corpuscular Hemoglobin 31.9 pg (26-32); Mean Corpuscular Hgb Concent. 32.6 g/dl (32-36); Mean Platelet Volume 9.6 fl (7.5-11.0); Monocyte (Absolute #) 0.14 (0.0-1.3); Monocytes % 2.2 % (0.0-12.0); Neutrophil % 93.6 % (36.0-66.0); Platelet Count 147 K/mm3 (150-450); Red Blood Count 3.48 M/mm3 (4.1-5.4); Red Cell Distribution Width 12.3 % (11.5-14.0); White Blood Count 6.3 K/mm3 (4.0-10.5)
[2020-04-10] MEDS ORDERED: Nitrostat 0.4 MG (ED) SL ONE ×2 (21:02→21:07)
[2020-04-10] MEDS ORDERED: BABY ASPIRIN 81 MG CHEW PO ONE (21:05)
[2020-04-10 21:13] LABS: INR 1.03 (0.8-3.0); PROTIME 11.6 SECONDS (9.95-12.35)
[2020-04-10 21:25] LABS: ALBUMIN 3.9 g/dL (3.5-5.0); ALKALINE PHOSPHATASE 170 U/L (38-126); ANION GAP 12.9 MEQ/L (5-15); BLOOD UREA NITROGEN 21 mg/dL (7-17); CHLORIDE 94 mmol/L (98-107); Calcium 9.4 mg/dL (8.4-10.2); Carbon Dioxide 27 mmol/L (22-30); Creatinine 1 0.81 mg/dL (0.52-1.04); Glucose 145 mg/dL (74-106); NT PRO BNP 1870 pg/mL (0-1800); Potassium 3.7 mmol/L (3.5-5.1); SGOT/AST 231 U/L (14-36); SGPT/ALT 256 U/L (0-35); SODIUM 130 mmol/L (137-145); Total Protein 7.2 g/dL (6.3-8.2)
[2020-04-10] MEDS ORDERED: MORPHINE SULFATE 2 MG INJ IV ONE (22:21)
[2020-04-10] MEDS ORDERED: Zofran 4 MG/2 ML VIAL IV ONE (22:21)
[2020-04-10] MEDS ORDERED: Zofran 4 MG/2 ML VIAL ONE (22:24)
[2020-04-10] MEDS ORDERED: MORPHINE SULFATE 2 MG INJ ONE (22:25)
[2020-04-11 03:23] VITALS: BP 111/55; PULSE 89; O2SAT 94
--- NOTE | 2020-04-11 08:48 | XRAY ---
Indication: Right hip bruising following fall last week. Comparison: None AP pelvis and 2 view right hip demonstrates mild osteopenia, minimal right hip degenerative arthropathy, moderate lower lumbar degenerative spondylosis, mild scattered vascular calcifications, and probable multiple gluteal calcified injection granulomas. No other bony, articular, or soft tissue abnormalities.
--- NOTE | 2020-04-11 08:50 | XRAY ---
Indication: Chest pain. Comparison: March 09, 2017. Portable chest again demonstrates normal heart and lungs with incidental tortuous descending aorta. Bony thorax intact again with mild osteopenia and degenerative changes. No new/acute findings.
[2020-04-11] MEDS ORDERED: Lasix 20 MG/2 ML IV ONE (23:31)
[2020-04-12 15:25] LABS: HEPATITIS A IGM Non Reactive (Non Reactive); HEPATITIS B VIRUS CORE TOT AB Non Reactive (Non Reactive); HEPATITIS C VIRUS ANTIBODY Non Reactive (Non Reactive); Hepatitis B Surface Ab.Quant. <3.50 mIU/mL (0.00-8.49); Hepatitis B Surface Antigen Non Reactive (Non Reactive)
== END 2020-04-11 02:25 | disposition short-term general hospital (02) ==
LOC: ED 20:00
DX: R07.89 Other chest pain (principal); I50.9 Heart failure, unspecified; I10 Essential (primary) hypertension; R74.8 Abnormal levels of other serum enzymes; E78.00 Pure hypercholesterolemia, unspecified; M81.0 Age-related osteoporosis without current pathological fracture; M19.90 Unspecified osteoarthritis, unspecified site; Z79.899 Other long term (current) drug therapy; R94.5 Abnormal results of liver function studies
CPT/HCPCS: 36000; 36415; 71045; 73502; 80053; 80074; 83880; 84484; 85025; 85610; 93005; 93041; 94760; 96360; 96361; 96374; 96375; 99285; J2270; J2405; A9270-GY

== ENCOUNTER 2021-08-13 15:10 | Emergency (ER) | payer MEDICARE, OTHER ==
[2021-08-13 15:25] VITALS: BP 158/78; PULSE 67; O2SAT 98
--- NOTE | 2021-08-13 15:45 | ERPHSYRPT ---
- History of Present Illness Time Seen by Provider: 08/13/21 15:42 Source: patient Exam Limitations: no limitations Patient Subjective Stated Complaint: trip and fall today and hit head Triage Nursing Assessment: pt to ED c/o mechanical fall. states she tripped in the garage and hit head on the concrete floor. did not lose consciousness and is not on blood thinners. rates 3/10 pain and reports MUNOZ is aching. no skin integrity issues noted. swelling and knot noted to R congregation. Physician History: patient tripped and fall today and hit head. Had goose bump on right forehead. c/o mechanical fall. states she tripped in the garage and hit head on the concrete floor. did not lose consciousness and is not on blood thinners. rates 3/10 pain and reports MUNOZ is aching. no skin integrity issues noted. swelling and knot noted to R congregation. Timing/Duration: today Severity: mild Associated Symptoms: denies symptoms Allergies/Adverse Reactions: No Known Allergies Allergy (Verified 08/13/21 15:25) Home Medications: Carvedilol 3.125 mg [Coreg 3.125 MG] 3.125 mg PO BID 10/04/15 [History] Hydrocodone Bit/Acetaminophen [[place] 7.5-325 Tablet] 1 each PO Q6HPRN PRN 10/04/15 [History] Simvastatin [Zocor] 20 mg PO HS 10/04/15 [History] Aspirin 81 gm Chew [Baby Aspirin 81 mg Chew] 81 mg PO DAILY 03/09/17 [History] Losartan/Hydrochlorothiazide [Losartan-Hctz 50-12.5 mg Tab] 50 mg PO DAILY 02/23/19 [History] Hx Tetanus, Diphtheria Vaccination/Date Given: Yes Hx Influenza Vaccination/Date Given: Yes Hx Pneumococcal Vaccination/Date Given: Yes Immunizations Up to Date: Yes Travel Risk - International Travel Have you traveled outside of the country in past 3 weeks: No - Coronavirus Screening Are you exhibiting any of the following symptoms?: No Close contact with a COVID-19 positive Pt in past 14-21 Days: No - Vaccine Status Have you recieved a Covid-19 vaccination: No - Review of Systems Constitutional: No Fever, No Chills Eyes: No Symptoms Ears, Nose, & Throat: No Symptoms Respiratory: No Cough, No Dyspnea Cardiac: No Chest Pain, No Edema, No Syncope Abdominal/Gastrointestinal: No Abdominal Pain, No Nausea, No Vomiting, No Diarrhea Genitourinary Symptoms: No Dysuria Musculoskeletal: No Back Pain, No Neck Pain Skin: No Rash Neurological: No Dizziness, No Focal Weakness, No Sensory Changes Psychological: No Symptoms Endocrine: No Symptoms All Other Systems: Reviewed and Negative - Past Medical History Pertinent Past Medical History: Yes Neurological History: No Pertinent History ENT History: Cataracts Cardiac History: High Cholesterol, Hypertension Respiratory History: No Pertinent History Endocrine Medical History: No Pertinent History Musculoskeletal History: Osteoarthritis GI Medical History: No Pertinent History History: No Pertinent History Psycho-Social History: No Pertinent History Female Reproductive Disorders: No Pertinent History Other Medical History: SX HX: CHOLECYSTECTOMY, BILATERAL TOTAL KNEE REPLACEMENT WITH MOST RECENT 6 YEARS AGO. - Past Surgical History Past Surgical History: Yes Neuro Surgical History: No Pertinent History Cardiac: No Pertinent History Respiratory: No Pertinent History Gastrointestinal: Cholecystectomy Genitourinary: No Pertinent History Musculoskeletal: Joint Replacement Female Surgical History: Tubal Ligation Other Surgical History: filter placed - Social History Smoking Status: Never smoker Exposure to second hand smoke: Yes Drug Use: none Patient Lives Alone: Yes - Female History Hx Now: No - Nursing Vital Signs Nursing Vital Signs: Initial Vital Signs Temperature 97.1 F 08/13/21 15:18 Pulse Rate 67 08/13/21 15:18 Respiratory Rate 20 08/13/21 15:18 Blood Pressure 158/78 08/13/21 15:18 O2 Sat by Pulse Oximetry 98 08/13/21 15:18 Pain Scale Pain Intensity 3 - Physical Exam General Appearance: no apparent distress, alert Eye Exam: PERRL/EOMI, eyes nml inspection Ears, Nose, Throat Exam: normal ENT inspection, TMs normal, pharynx normal, moist mucous membranes Neck Exam: normal inspection, non-tender, supple, full range of motion Respiratory Exam: normal breath sounds, lungs clear, No respiratory distress Cardiovascular Exam: regular rate/rhythm, normal heart sounds, normal peripheral pulses Gastrointestinal/Abdomen Exam: soft, normal bowel sounds, No tenderness, No mass Back Exam: normal inspection, normal range of motion, No CVA tenderness, No vertebral tenderness Extremity Exam: normal inspection, normal range of motion, pelvis stable Neurologic Exam: alert, oriented x 3, cooperative, normal mood/affect, nml cerebellar function, nml station & gait, sensation nml, No motor deficits Skin Exam: normal color, warm, dry, No rash Lymphatic Exam: No adenopathy SpO2: 98 - Course Nursing assessment & vital signs reviewed: Yes - CT Exams Head CT Interpretation: Tele-radiologist Report Ordered Tests: Active Orders 24 hr Category Date Time Status HEAD WITHOUT CONTRAST [CT] Stat Exams 08/13/21 15:39 Taken - Progress Progress: improved Counseled pt/family regarding: diagnosis, need for follow-up, rad results - Departure Departure Disposition: Home Clinical Impression: Fall (on) (from) other stairs and steps, initial encounter Head injury without concussion or intracranial hemorrhage Qualifiers: Encounter type: initial encounter Qualified Code(s): S09.90XA - Unspecified injury of head, initial encounter Condition: Stable Critical Care Time: No Referrals: DARRYL FLORES NP [Primary Care Provider] - Instructions: Preventing Falls, Contusion (DC) Additional Instructions: Discharge/Care Plan RONALD RICARDO was seen on 08/13/21 in the Emergency Room. The patient was counseled regarding Diagnosis,Lab results, Imaging studies, need for follow up and when to return to the Emergency Room. Prescriptions given: Discharge Note I have spoken with the patient and/or caregivers. I have explained the patient's condition, diagnosis and treatment plan based on the information available to me at this time. I have answered the patient's and/or caregiver's questions and addressed any concerns. The patient and/or caregivers have as good understanding of the patient's diagnosis, condition and treatment plan as can be expected at this point. The vital signs have been stable. The patient's condition is stable and appropriate for discharge from the emergency department. The patient will pursue further outpatient evaluation with the primary care physician or other designated or consulting physician as outlined in the discharge instructions. The patient and/or caregivers are agreeable to this plan of care and follow-up instructions have been explained in detail. The patient and/or caregivers have received these instruction. The patient/and or caregivers are aware that any significant change in condition or worsening of symptoms should prompt an immediate return to this or the closest emergency department or call 911. RONALD RICARDO was seen on 08/13/21 n the Emergency Room. At that time you were treated for an emergent condition, during your visit Laboratory, Radiology and/or other procedures may have been ordered. It is very important that you follow-up with your Primary Care Physician DARRYL FLORES within the next 24-48 hours to review your Emergency Room visit and the final results of testing that was ordered. Some test results such as Urine Cultures, Blood Cultures, and other cultures if ordered will not be finalized for 24-48 hours. If you do not have a Primary Care Provider please call the medical records department at [phone] ext [phone] to obtain a copy of your results or you may sign into our patient portal to obtain these results by visiting us @ [email or web address] and completing the following steps: 1. Click on the Patient Portal link 2. Click the Patient Self Enrollment Link to complete the enrollment form and entering your 3. Once the enrollment form is completed you will receive an email with a temporary ID and password at the email address you provided. 4. Next choose a user name and password. Your user name must be at least 4 characters long and your password must be at least 4 characters long. 5. Choose a security question from the list and provide your answer to the question. If you already have signed into the Health Portal you may access your Health Care Information 06/05 by the following steps: 1. Login to our website @ [email or web address] 2. Enter your original user name and password. FAQS The [facility] Health Portal is an online tool that contains your Lab Results, Radiology Reports, Visit History, Discharge Instructions and Health Summary Lab and Radiology Results will not be available for 72 hours on the portal. The Portal is a secure site, passwords are encryted and URLs are re-written so they cannot be copied and pasted. You and authorized family members are the only ones who can access your Portal. Also there is a timeout feature that protects your information if you leave the Portal page open. If you have technical difficulty please use the Contact Us link on the page this will allow you to submit any questions you have regarding the Portal or you may contact the Medical Record Department at [phone] ext [phone].
--- NOTE | 2021-08-13 19:46 | XRAY ---
Indication: Right frontal hematoma following fall. Current baby aspirin therapy. Multiple contiguous axial images obtained through the head without contrast. Comparison: None Age appropriate global atrophy, minimal periventricular degenerative micro-ischemia, and small focus of old infarct left posterior parietal lobe. No acute intracranial hemorrhage, abnormal extra-axial fluid collection, or mass effect. Fourth ventricle is midline. Mild right frontal parietal scalp hematoma. Bony calvarium intact. Visualized paranasal sinuses and mastoid air cells are clear. Impression: 1. Right frontoparietal scalp hematoma. 2. No acute fracture or acute intracranial abnormalities. 3. Atrophy and degenerative micro-ischemia within normal limits for patient's age. 4. 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 Comment: Preliminary interpretation made by [facility]. No critical discrepancy.
== END 2021-08-13 16:27 | disposition home or self-care (01) ==
LOC: ED 15:10
DX: S09.90XA Unspecified injury of head, initial encounter (principal); W01.198A Fall on same level from slipping, tripping and stumbling with subsequent striking against other object, initial encounter; Y93.89 Activity, other specified; Y92.89 Other specified places as the place of occurrence of the external cause; Y99.8 Other external cause status; Z79.899 Other long term (current) drug therapy; I10 Essential (primary) hypertension
CPT/HCPCS: 70450; 99283